=== PATIENT | male | born 1990 | race Caucasian/White ===

== ENCOUNTER 2017-07-17 02:53 | Emergency (ER) | payer OTHER ==
[~2017-07-17] VITALS: Ht 182.9 cm; Wt 83.8 kg
[~2017-07-17 02:53] MED LIST: AMBI5TAB PO; MOBI15TA PO
[2017-07-17 02:57] VITALS: BP 142/87; PULSE 64; RESP 20; TEMP 98.1; O2SAT 100
[2017-07-17] MEDS ORDERED: ZANT150T2 PO (03:07)
[2017-07-17 03:10] VITALS: BP 140/66; PULSE 55; RESP 18; O2SAT 99
[2017-07-17 03:40] VITALS: O2SAT 99
--- NOTE | 2017-07-17 03:42 | PD ---
HPI Chief Complaint: Chest Pain Time Seen by Provider: 03:38 Travel History International Travel<30 days: No Contact w/Intl Traveler<30days: No Traveled to known affect area: No History of Present Illness HPI 26-year-old male patient with history of no significant past medical issues, presents to the ER today because he started having palpitations that last for several minutes that time starting last night. He states he gets some mild shortness of breath and dizziness during these episodes. He denies any current symptoms. He states that they come and go. He does not know triggers. He denies any new medications, increase in caffeine use. He does admit he has some stress in his life currently. Symptoms have subsided when he is in the ER. Modifying Factors: None Associated Signs & Symptoms: Palpitations Risk Factors: None PFSH Past Medical History Medical History: Denies Significant Hx Tetanus Vaccination: < 5 Years Influenza Vaccination: Yes Social History Alcohol Use: Yes (SOCIAL) Tobacco Use: No (FORMER CHEWING TOBACCO: QUIT 2016) Substance Use: No Allergies-Medications (Allergen,Severity, Reaction): Coded Allergies: amoxicillin (Unverified Allergy, Severe, HIVES, 07/17/17) codeine (Unverified Allergy, Severe, UNKNOWN, 07/17/17) guaifenesin (Unverified Allergy, Severe, UNKNOWN, 07/17/17) penicillin G (Unverified Allergy, Intermediate, Hives, 07/17/17) Reported Meds & Prescriptions Reported Meds & Active Scripts Active Reported Zantac (Ranitidine HCl) 150 Mg Tab 150 Mg PO DAILY PRN Review of Systems Except as stated in HPI: all other systems reviewed are Neg Physical Exam Narrative GENERAL: Well-developed young white male patient currently in no acute distress. Awake and oriented 3. SKIN: Focused skin assessment warm/dry. HEAD: Atraumatic. Normocephalic. EYES: Pupils equal and round. No scleral icterus. No injection or drainage. ENT: No nasal bleeding or discharge. Mucous membranes pink and moist. NECK: Trachea midline. No JVD. Supple. CARDIOVASCULAR: Regular rate and rhythm. No murmur appreciated. RESPIRATORY: No accessory muscle use. Clear to auscultation. Breath sounds equal bilaterally. GASTROINTESTINAL: Abdomen soft, non-tender, nondistended. Hepatic and splenic margins not palpable. MUSCULOSKELETAL: No obvious deformities. No clubbing. No cyanosis. No edema. NEUROLOGICAL: Awake and alert. No obvious cranial nerve deficits. Motor grossly within normal limits. Normal speech. PSYCHIATRIC: Appropriate mood and affect; insight and judgment normal. Data Data Last Documented VS Vital Signs Date Time Temp Pulse Resp B/P (MAP) Pulse Ox O2 Delivery O2 Flow Rate FiO2 07/17/17 04:39 52 16 120/75 (90) 99 Room Air 07/17/17 02:57 98.1 Orders Orders Electrocardiogram (07/17/17 03:38) Basic Metabolic Panel (Bmp) (07/17/17 03:38) Ckmb (Isoenzyme) Profile (07/17/17 03:38) Complete Blood Count With Diff (07/17/17 03:38) Magnesium (Mg) (07/17/17 03:38) Prothrombin Time / Inr (Pt) (07/17/17 03:38) Act Partial Throm Time (Ptt) (07/17/17 03:38) Troponin I (07/17/17 03:38) Ecg Monitoring (07/17/17 03:38) Bilateral Bp Monitoring (07/17/17 03:38) Iv Access Insert/Monitor (07/17/17 03:38) Oximetry (07/17/17 03:38) Oxygen Administration (07/17/17 03:38) Sodium Chloride 0.9% Flush (Ns Flush) (07/17/17 03:45) Sodium Chlorid 0.9% 500 Ml Inj (Ns 500 M (07/17/17 03:45) Chest, Pa & Lat (07/17/17 03:38) Drug Screen, Random Urine (07/17/17 03:38) CKMB (07/17/17 03:40) CKMB% (07/17/17 03:40) Potassium Chloride Eff (K-Lyte Cl Eff) (07/17/17 04:30) Labs Laboratory Tests Test 07/17/17 03:40 White Blood Count 8.2 TH/MM3 Red Blood Count 5.00 MIL/MM3 Hemoglobin 16.1 GM/DL Hematocrit 45.6 % Mean Corpuscular Volume 91.2 FL Mean Corpuscular Hemoglobin 32.2 PG Mean Corpuscular Hemoglobin Concent 35.3 % Red Cell Distribution Width 12.2 % Platelet Count 278 TH/MM3 Mean Platelet Volume 9.3 FL Neutrophils (%) (Auto) 51.4 % Lymphocytes (%) (Auto) 38.4 % Monocytes (%) (Auto) 8.0 % Eosinophils (%) (Auto) 1.1 % Basophils (%) (Auto) 1.1 % Neutrophils # (Auto) 4.1 TH/MM3 Lymphocytes # (Auto) 3.2 TH/MM3 Monocytes # (Auto) 0.7 TH/MM3 Eosinophils # (Auto) 0.1 TH/MM3 Basophils # (Auto) 0.1 TH/MM3 CBC Comment DIFF FINAL Differential Comment Prothrombin Time 10.6 SEC Prothromb Time International Ratio 1.0 RATIO Activated Partial Thromboplast Time 28.5 SEC Blood Urea Nitrogen 16 MG/DL Creatinine 1.20 MG/DL Random Glucose 104 MG/DL Calcium Level 8.6 MG/DL Magnesium Level 2.0 MG/DL Sodium Level 138 MEQ/L Potassium Level 3.3 MEQ/L Chloride Level 105 MEQ/L Carbon Dioxide Level 25.9 MEQ/L Anion Gap 7 MEQ/L Estimat Glomerular Filtration Rate 73 ML/MIN Total Creatine Kinase 220 U/L Creatine Kinase MB 0.7 NG/ML Troponin I LESS THAN 0.02 NG/ML Urine Opiates Screen NEG Urine Barbiturates Screen NEG Urine Amphetamines Screen NEG Urine Benzodiazepines Screen NEG Urine Cocaine Screen NEG Urine Cannabinoids Screen NEG MDM Medical Decision Making Medical Screen Exam Complete: Yes Emergency Medical Condition: Yes Medical Record Reviewed: Yes Interpretation(s) EKG shows normal sinus rhythm at a rate of 62 bpm with no signs of acute ST elevations or depressions. Laboratory Tests Test 07/17/17 03:40 Potassium Level 3.3 MEQ/L (3.5-5.1) Estimat Glomerular Filtration Rate 73 ML/MIN (>89) Troponin I LESS THAN 0.02 NG/ML Last 24 hours Impressions Chest X-Ray 07/17/17 0338 Signed Impressions: Service Date/Time: Monday, July 17, 2017 03:44 - CONCLUSION: Normal examination. Fabian Chris Jr., MD Differential Diagnosis Dysrhythmias versus anxiety attack versus metabolic issues versus dehydration Narrative Course Patient's lab work did show some mild hypokalemia. Potassium was given p.o. in the ER. EKG did not show any signs of dysrhythmias or ST changes. Patient has had no significant family of sudden or cardiac issues within the immediate family or early heart disease and heart attacks. At this point, my plan would be to release the patient would follow-up to primary care physician. Return for any worsening of symptoms as needed. The plan has been discussed with him and he states understanding. Diagnosis Primary Impression: Palpitations Disposition: 01 DISCHARGE HOME Condition: Stable Shubham Dillard MD Jul 17, 2017 03:42
[2017-07-17] MEDS ORDERED: SODIUM CHLORID 0.9% 500 ML INJ 500 ML IV ONE (03:45)
[2017-07-17] MEDS ORDERED: SODIUM CHLORIDE 0.9% FLUSH 10 ML FLUSH IVF PRN (03:45)
[2017-07-17 03:56] LABS: AUTOMATED NEUTROPHIL # 4.1 TH/MM3 (1.8-7.7); BASOPHIL # 0.1 TH/MM3 (0-0.2); BASOPHIL % 1.1 % (0.0-2.0); EOSINOPHIL # 0.1 TH/MM3 (0-0.4); EOSINOPHIL % 1.1 % (0.0-4.0); HEMATOCRIT 45.6 % (39.0-51.0); HEMOGLOBIN 16.1 GM/DL (13.0-17.0); LYMPH % 38.4 % (9.0-44.0); LYMPHOCYTE # 3.2 TH/MM3 (1.0-4.8); MEAN CELL VOLUME 91.2 FL (80.0-100.0); MEAN CORPUSCULAR HEMOGLOBIN 32.2 PG (27.0-34.0); MEAN CORPUSCULAR HGB CONC 35.3 % (32.0-36.0); MEAN PLATELET VOLUME 9.3 FL (7.0-11.0); MONOCYTE # 0.7 TH/MM3 (0-0.9); NEUT % 51.4 % (16.0-70.0); PLATELET COUNT 278 TH/MM3 (150-450); RED CELL DISTRIBUTION WIDTH 12.2 % (11.6-17.2); WHITE BLOOD COUNT 8.2 TH/MM3 (4.0-11.0)
[2017-07-17 04:00] VITALS: BP_SYST 132; BP_SYST 133; BP_DIAS 73; BP_DIAS 75; PULSE 51; RESP 16; O2SAT 99
--- NOTE | 2017-07-17 04:05 | RADRPT ---
EXAM DATE/TIME: 07/17/2017 03:44 [facility] COMPARISON: No previous studies available for comparison. INDICATIONS : Chest pain. MEDICAL HISTORY : None. SURGICAL HISTORY : None. ENCOUNTER: Initial ACUITY: 1 day PAIN SCORE: 4/10 LOCATION: Left chest FINDINGS: PA and lateral views of the chest demonstrate the lungs to be symmetrically aerated without evidence of mass, infiltrate or effusion. The cardiomediastinal contours are unremarkable. Osseous structure s are intact. CONCLUSION: Normal examination. Fabian Chris Jr., MD on July 17, 2017 at 4:03 Board Certified Radiologist. This report was verified electronically.
[2017-07-17 04:11] LABS: CHLORIDE 105 MEQ/L (98-107); SODIUM (NA) 138 MEQ/L (136-145)
[2017-07-17 04:13] LABS: CALCIUM 8.6 MG/DL (8.5-10.1)
[2017-07-17 04:14] LABS: BICARBONATE 25.9 MEQ/L (21.0-32.0); BLOOD UREA NITROGEN 16 MG/DL (7-18); GLUCOSE,RANDOM 104 MG/DL (74-106)
[2017-07-17 04:16] LABS: PROTHROMBIN TIME - PATIENT 10.6 SEC (9.8-11.6)
[2017-07-17 04:17] LABS: GLOMERULAR FILTRATION RATE 73 ML/MIN (>89)
[2017-07-17 04:22] LABS: TROPONIN I LESS THAN 0.02 NG/ML (0.02-0.05)
[2017-07-17] MEDS ORDERED: POTASSIUM CHLORIDE 25 MEQ EFFERVESCENT TAB PO ONE (04:30)
[2017-07-17 04:39] VITALS: BP 120/75; PULSE 52; RESP 16; O2SAT 99
[2017-07-17 05:12] VITALS: BP 119/70
--- NOTE | 2017-07-17 18:17 | EKG ---
Date Performed: 07/17/2017 Time Performed: 03:02:53 PTAGE: 26 years EKG: Sinus rhythm WITH SINUS ARRHYTHMIA MINIMAL ST DEPRESSION BORDERLINE ECG NO PREVIOUS TRACING DOCTOR: Becki Baumann Interpretating Date/Time 07/17/2017 18:14:06
== END 2017-07-17 05:17 | disposition home or self-care (01) ==
LOC: PHED 02:53
DX: R00.2 Palpitations (principal); Z87.891 Personal history of nicotine dependence; R94.31 Abnormal electrocardiogram [ECG] [EKG]
CPT/HCPCS: 71046; 80048; 80307; 82550; 82552; 83735; 84484; 85025; 85610; 85730; 93005; 96360; 99285; J7040